=== PATIENT | female | born 1930 | race Hispanic/Latino ===

== ENCOUNTER 2017-05-01 11:19 | Emergency (ER) | payer MEDICARE, MEDICAID ==
[2017-05-01 11:20] VITALS: BMI 24.0
[2017-05-01 11:35] VITALS: TEMP 98.1
[2017-05-01] MEDS ORDERED: Tmp-Smz 800 mg-160 mg DS Tab PO STA (12:25)
[2017-05-01 12:38] VITALS: BP 129/61; PULSE 94; RESP 18; O2SAT 93
[2017-05-01] MEDS ORDERED: TDAP Vaccine 0.5 mL Syr IM ONE (12:50)
--- NOTE | 2017-05-01 12:52 | ED PDOC ---
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 The patient reports 2 weeks ago she was scratched by the family dog and has been attempting to keep the wound clean and has been applying bacitracin in order for it to heal. She states she came to the emergency department because it has been 2 weeks and the wound has not healed yet. The patient states she believes she saw purulent discharge this morning. She denies any fevers or chills. Denies numbness, weakness and tingling to left hand, or any other complaints at this time. Time/Duration: > week (x 2 weeks ) Symptom Onset: Sudden Symptom Course: Unchanged Severity Level: Mild Context: Home Past Medical History - Provider Review Nursing Documentation Reviewed: Yes - Travel History Have you recently traveled outside [place] w/in the past 3 mons?: No - Tetanus Immunization Tetanus Immunization: Unknown - Reproductive Currently : No - Cardiac Hx Cardiac Disorders: Yes Hx Hypertension: Yes Hx Pacemaker: No - Pulmonary Hx Respiratory Disorders: Yes Hx Chronic Obstructive Pulmonary Disease (COPD): Yes - Neurological Hx Neurological Disorder: No Hx Paralysis: No - HEENT Hx HEENT Disorder: No - Renal Hx Renal Disorder: No - Endocrine/Metabolic Hx Endocrine Disorders: No - Hematological/Oncological Hx Blood Disorders: Yes Hx Blood Transfusions: Yes Hx Blood Transfusion Reaction: No - Integumentary Hx Dermatological Disorder: No - Musculoskeletal/Rheumatological Hx Musculoskeletal Disorders: No - Gastrointestinal Hx Gastrointestinal Disorders: No - Genitourinary/Gynecological Hx Genitourinary Disorders: No - Psychiatric Hx Psychophysiologic Disorder: No Hx Emotional Abuse: No Hx Physical Abuse: No Hx Substance Use: No - Anesthesia Hx Anesthesia Reactions: No Hx Malignant Hyperthermia: No - Suicidal Assessment Feels Threatened In Home Enviroment: No Family/Social History - Physician Review Nursing Documentation Reviewed: Yes Family/Social History: No Known Family HX Smoking Status: Former Smoker Hx Alcohol Use: Yes (glass of wine daily) Hx Substance Use: No Hx Substance Use Treatment: No Allergies/Home Meds Allergies/Adverse Reactions: Allergies No Known Allergies Allergy (Verified 05/01/17 11:35) Review of Systems - Physician Review All systems were reviewed & negative as marked: Yes - Review of Systems Constitutional: absent: Fevers, Other (chills ) Respiratory: absent: SOB, Cough Cardiovascular: absent: Chest Pain, Palpitations Gastrointestinal: absent: Abdominal Pain, Vomiting, Anorexia Musculoskeletal: absent: Arthralgias, Back Pain Skin: Laceration (wound from dog scratch in "V" shape; no numbness or weakness) . absent: Pruritis Neurological: absent: Headache Physical Exam Vital Signs Reviewed: Yes Vital Signs Temp Pulse Resp BP Pulse Ox 05/01/17 12:35 94 H 18 129/61 93 L 05/01/17 11:28 98.1 F 108 H 20 140/87 87 L Temperature: Afebrile Blood Pressure: Hypertensive Pulse: Regular Respiratory Rate: Normal Appearance: Positive for: Well-Appearing, Non-Toxic, Comfortable Pain Distress: None Mental Status: Positive for: Alert and Oriented X 3 - Systems Exam Head: Present: Atraumatic Mouth: Present: Moist Mucous Membranes Respiratory/Chest: Present: Clear to Auscultation, Good Air Exchange. No: Respiratory Distress, Accessory Muscle Use Cardiovascular: Present: Regular Rate and Rhythm Back: Present: Normal Inspection Upper Extremity: Present: Normal ROM, NORMAL PULSES, Neurovascularly Intact, Capillary Refill < 2s, Other (Left hand "V" shaped skin avulsion approximately 3cm x 3 cm without any purulent discharge. no tenderness or surrounding erythema.). No: Normal Inspection, Cyanosis, Edema, Tenderness, Swelling, Erythema, Temperature Abnormalties, Deformity Lower Extremity: Present: Normal Inspection. No: Edema Neurological: Present: GCS=15, Speech Normal, Motor Func Grossly Intact, Normal Sensory Function Skin: Present: Warm, Dry, Normal Color Psychiatric: Present: Alert, Oriented x 3 Medical Decision Making ED Course and Treatment: 05/01/17 13:02 86 year old female with 2 week history of skin avulsion to left hand s/p being scratched by family dog. Wound is healing slowly. No surrounding erythema, no warmth, non tender. We will cover the patient prophylactically with antibiotics. -- Keflex, Bactrim -- Tetanus updated Patient is nontoxic appearing in no distress. Vital signs are stable. I stressed the importance of follow-up with the primary care physician within the next 2 days. Advised the patient that we will do a trial of PO antibiotics and if there is any worsening of symptoms she is to return immediately to the emergency room. Patient verbalizes understanding of discharge instructions and need for immediate followup. all aspects of this case were discussed the attending of record. Impression: Skin avulsion, hand Bactrim 1 tablet twice daily 7 days Keflex 1 capsule 4 times daily 7 days Apply bacitracin twice daily keep wound clean and dry Follow-up with the primary care physician within the next 2 days Return immediately if symptoms worsen persist or if new concerning symptoms develop: High fevers, increasing pain, increasing redness, increasing swelling, purulent discharge - Medication Orders Current Medication Orders: Discontinued Medications Cephalexin Monohydrate (Keflex) 500 mg PO STAT STA PRN Reason: Protocol Stop: 05/01/17 12:26 Last Admin: 05/01/17 12:35 Dose: 500 mg Tetanus/Reduced Diphtheria/Acell Pertussis (Boostrix Vaccine Inj) 0.5 ml IM .ONCE ONE Stop: 05/01/17 12:51 Last Admin: 05/01/17 13:00 Dose: 0.5 ml Immunization Registry Document 05/01/17 13:00 SE (Rec: 05/01/17 13:00 SE [id number]) Immunization Registry Consent Date 05/01/17 Trimethoprim/Sulfamethoxazole (Bactrim Ds Tab) 1 tab PO STAT STA PRN Reason: Protocol Stop: 05/01/17 12:26 Last Admin: 05/01/17 12:35 Dose: 1 tab - Scribe Statement The provider has reviewed the documentation as recorded by the Valencia Maria Provider Scribe Attestation: All medical record entries made by the Valencia were at my direction and personally dictated by me. I have reviewed the chart and agree that the record accurately reflects my personal performance of the history, physical exam, medical decision making, and the department course for this patient. I have also personally directed, reviewed, and agree with the discharge instructions and disposition. Disposition/Present on Arrival - Present on Arrival Any Indicators Present on Arrival: No History of DVT/PE: No History of Uncontrolled Diabetes: No Urinary Catheter: No History of Decub. Ulcer: No History Surgical Site Infection Following: None - Disposition Have Diagnosis and Disposition been Completed?: Yes Diagnosis: Abrasion hand Disposition: HOME/ ROUTINE Disposition Time: 12:52 Patient Plan: Discharge Condition: GOOD Additional Instructions: Bactrim 1 tablet twice daily 7 days Keflex 1 capsule 4 times daily 7 days Apply bacitracin twice daily keep wound clean and dry Follow-up with the primary care physician within the next 2 days Return immediately if symptoms worsen persist or if new concerning symptoms develop: High fevers, increasing pain, increasing redness, increasing swelling, purulent discharge Prescriptions: Cephalexin [Keflex] 500 mg PO QID #28 capsule Sulfamethoxazole/Trimethoprim [Bactrim DS 800 mg-160 mg] 1 tab PO BID #14 tab Referrals: Colton Colby MD [Primary Care Provider] - Follow up with primary Santiago Anderson MD [Staff Provider] - Follow up with primary Forms: [employer] (Dominican)
== END 2017-05-01 13:08 | disposition home or self-care (01) ==
LOC: ED 11:19
DX: S60.512A Abrasion of left hand, initial encounter (principal); X58.XXXA Exposure to other specified factors, initial encounter; Z23 Encounter for immunization; I10 Essential (primary) hypertension; J44.9 Chronic obstructive pulmonary disease, unspecified; Z99.81 Dependence on supplemental oxygen; Z87.891 Personal history of nicotine dependence